=== PATIENT | female | born 1975 | race Caucasian/White ===

== ENCOUNTER 2017-06-20 13:52 | Emergency (ER) | payer OTHER ==
[~2017-06-20] VITALS: Ht 152.4 cm; Wt 78.5 kg
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
[2017-06-20] MEDS ORDERED: ACETAMINOPHEN W/ CODEINE#3 1 EA TABLET ONE (14:12)
--- NOTE | 2017-06-20 14:15 | NUR ---
JAYDEN FROM RADIOLOGY NOTIFIED THAT PATIENT SIGNED A WAIVER
[2017-06-20] MEDS ORDERED: ACETAMINOPHEN W/ CODEINE#3 1 EA TABLET PO ONE (14:30)
[2017-06-20] MEDS ORDERED: HYDROCODONE/APAP 5/325MG 1 EACH TABLET PO ONE (14:30)
[2017-06-20 16:07] VITALS: BP 145/83
== END 2017-06-20 16:11 | disposition home or self-care (01) ==
LOC: ER 14:01
DX: S52.122A Displaced fracture of head of left radius, initial encounter for closed fracture (principal); W01.0XXA Fall on same level from slipping, tripping and stumbling without subsequent striking against object, initial encounter; Y93.89 Activity, other specified; Y92.89 Other specified places as the place of occurrence of the external cause; Y99.8 Other external cause status
CPT/HCPCS: 73080-TC; 73090-TC; A4606; Z7610